=== PATIENT | male | born 1990 | race Hispanic/Latino ===

== ENCOUNTER 2019-03-20 23:19 | Emergency (ER) | payer OTHER ==
[~2019-03-20] VITALS: Ht 165.1 cm; Wt 81.8 kg
[2019-03-21 00:15] LABS: HEMOGLOBIN 15.4 g/dl (13.5-17.5); MEAN CORPUSCULAR HGB CONC 33.5 g/dl (32.0-36.5); MEAN CORPUSCULAR VOLUME 95.4 fl (80.0-96.0); PLATELET COUNT, AUTOMATED 236 10^3/uL (150-450); RED BLOOD COUNT 4.82 10^6/uL (4.30-6.10); WHITE BLOOD COUNT 8.1 10^3/uL (4.0-10.0)
[2019-03-21 00:44] LABS: ALBUMIN 4.1 GM/DL (3.2-5.2); ALT/SGPT 41 U/L (12-78); BILIRUBIN,TOTAL 0.2 MG/DL (0.2-1.0); BLOOD UREA NITROGEN 11 MG/DL (7-18); CALCIUM LEVEL 8.8 MG/DL (8.5-10.1); CARBON DIOXIDE LEVEL 31 MEQ/L (21-32); CHLORIDE LEVEL 107 MEQ/L (98-107); CREATININE FOR GFR 1.31 MG/DL (0.70-1.30); GLOMERULAR FILTRATION RATE > 60.0 (>60); GLUCOSE, FASTING 108 MG/DL (70-100); POTASSIUM SERUM 3.8 MEQ/L (3.5-5.1); SODIUM LEVEL 142 MEQ/L (136-145); TOTAL PROTEIN 7.6 GM/DL (6.4-8.2)
--- NOTE | 2019-03-21 00:50 | REPVR ---
EXAM: CT Head Without Contrast EXAM DATE/TIME: 03/20/2019 11:34 PM CLINICAL HISTORY: 28 years old, male; Injury or trauma; Fall; Initial encounter; Concussion / head injury; Additional info: Syncope with R forhead abrasion TECHNIQUE: Imaging protocol: Computed tomography images of the head without contrast. Radiation optimization: All CT scans at this facility use at least one of these dose optimization techniques: automated exposure control; mA and/or kV adjustment per patient size (includes targeted exams where dose is matched to clinical indication); or iterative reconstruction. COMPARISON: No relevant prior studies available. FINDINGS: There is no acute intracranial hemorrhage, extra axial hematoma, or midline shift. The ventricles are not dilated. No CT findings are seen at the current time to suggest changes of acute territorial vascular infarction. Note is made however, that CT changes, may lag clinical findings in acute CVA. If clinically indicated, consideration could be given to MRI with diffusion weighted imaging, due to its greater sensitivity, for detection of acute ischemic change. Intracranial calcifications are incidentally noted. No pericranial scalp hematoma is seen. No acute cranial vault fracture is seen. No fluid is seen within the visualized mastoid air cells. There is mucosal thickening within the right frontal sinus. There is opacification of the right frontoethmoid recess. Mucosal thickening and partial opacification of several ethmoid air cells bilaterally. Mucosal thickening and small amount of fluid noted within the left sphenoid sinus. IMPRESSION: No evidence of an acute intracranial injury. No evidence of acute territorial major vessel infarct, mass effect, or hemorrhage. Clinical correlation for paranasal sinus disease. Electronically signed by: Cb Waldrop On 03/21/2019 00:50:04 AM
[2019-03-21] MEDS ORDERED: NS 1,000 ML IV ONE (06:30)
[2019-03-21 07:12] LABS: APPEARANCE, URINE CLEAR (CLEAR); BACTERIA, URINE AUTO NEGATIVE (NEGATIVE); BILIRUBIN, URINE AUTO NEGATIVE (NEGATIVE); BLOOD, URINE BLOOD NEGATIVE (NEGATIVE); COLOR, URINE YELLOW (YELLOW); GLUCOSE, URINE (UA) AUTO NEGATIVE (NEGATIVE); KETONE, URINE AUTO NEGATIVE (NEGATIVE); LEUKOCYTE ESTERASE, URINE AUTO NEGATIVE (NEGATIVE); MUCUS, URINE SMALL (NEGATIVE); NITRITE, URINE AUTO NEGATIVE (NEGATIVE); PROTEIN, URINE AUTO NEGATIVE (NEGATIVE); RBC, URINE AUTO 2 /HPF (0-3); SQUAMOUS EPITHELIAL CELL UR AU 0 /HPF (0-6); UROBILINOGEN, URINE AUTO 0.2 mg/dL (0.0-2.0); WBC, URINE AUTO 1 /HPF (0-3)
[2019-03-21 08:43] VITALS: BP 144/62
[2019-03-21] MEDS ORDERED: PRED10TA2 PO (08:50)
[2019-03-21] MEDS ORDERED: KEFL500C17 PO (08:50)
--- NOTE | 2019-03-22 19:26 | ECGEPIP ---
[facility] - ED Test Date: 2019-03-21 Pat Name: JORGE L SAUNDERS JR Department: Room: - Gender: Male Slip Mixer: : [id number] Requested By: ZELALEM BAUER Order Number: [id number] Reading MD: Erica Wilson Measurements Intervals [place] Rate: 66 P: 21 MD: 120 QRS: 19 QRSD: 100 T: -6 QT: 417 QTc: 440 Interpretive Statements SINUS RHYTHM NONSPECIFIC ST & T-WAVE ABNORMALITY NO PRIOR Electronically Signed on 03-22-2019 19:25:37 EDT by Erica Wilson
== END 2019-03-21 08:57 | disposition home or self-care (01) ==
LOC: M ED 23:19
DX: R55 Syncope and collapse (principal); E86.0 Dehydration